=== PATIENT | female | born 1955 | race Two or more races ===

== ENCOUNTER 2021-01-27 09:01 | Outpatient (CLI) | payer OTHER | END 2021-01-27 09:07 | disposition home or self-care (01) | LOC: RX STUDY 09:01 | PROVIDERS: ATTEND Internal Medicine Gastroenterology | DX: K21.9 Gastro-esophageal reflux disease without esophagitis (principal); K44.9 Diaphragmatic hernia without obstruction or gangrene; R13.19 Other dysphagia ==

== ENCOUNTER 2022-08-12 07:30 | Inpatient (IN) | payer OTHER ==
[~2022-08-12] VITALS: Ht 147.3 cm; Wt 77.1 kg
[2022-08-12] MEDS ORDERED: SYNTHROID137 MCG PO (09:14)
[2022-08-12] MEDS ORDERED: PRAVASTATIN SOD10 MG PO (09:15)
[2022-08-18] MEDS ORDERED: CALCIUM 500-VI1 EAC4 (08:22)
[2022-08-18] MEDS ORDERED: GLUCOSAMINE-CH1 EA18 (08:23)
[2022-08-18] MEDS ORDERED: OMEGA 3-6-9 CO400 MG (08:23)
[2022-08-20] MEDS ORDERED: ELIQUIS2.5 MG PO (14:52)
[2022-08-20] MEDS ORDERED: PERCOCET 5-3251 EACH PO (14:52)
[2022-08-20] MEDS ORDERED: CIPRO500 MG PO (14:52)
== END 2022-08-20 22:46 | disposition home or self-care (01) | DRG 470 ==
LOC: O/R 08-18 05:30 → SURG 08-18 05:30 → SURH 08-18 07:30 → SURG 08-18 11:18 → SURH 08-18 17:45 → OB/GYN 08-20 16:15 → SURG 08-20 16:48
PROVIDERS: ADMIT Orthopaedic Surgery; ATTEND Orthopaedic Surgery
PROC: 0SRD0J9 Replacement of Left Knee Joint with Synthetic Substitute, Cemented, Open Approach (ICD-10-PCS; principal; 2022-08-18 17:45)
DX: M17.12 Unilateral primary osteoarthritis, left knee (principal); D62 Acute posthemorrhagic anemia; M22.12 Recurrent subluxation of patella, left knee; E03.9 Hypothyroidism, unspecified; K21.9 Gastro-esophageal reflux disease without esophagitis; Z96.652 Presence of left artificial knee joint; Z20.822 Contact with and (suspected) exposure to COVID-19

== ENCOUNTER 2022-08-25 14:20 | Inpatient (IN) | payer OTHER ==
[~2022-08-25] VITALS: Ht 147.3 cm; Wt 75.3 kg
[~2022-08-25 14:20] MED LIST: CALCIUM 500-VI1 EAC4; CIPRO500 MG PO; ELIQUIS2.5 MG PO; GLUCOSAMINE-CH1 EA18; OMEGA 3-6-9 CO400 MG; PERCOCET 5-3251 EACH PO; PRAVASTATIN SOD10 MG PO; SYNTHROID137 MCG PO
--- NOTE | 2022-08-25 14:39 | NUR ---
SE RECIBE PTE ALERTA Y ORIENTADO PTE REFIERE QUE TIENE LAB DE [facility] CON LA HEMOGLOBINA EN 7.4, PTE REFIERE DEBILIDAD EN GENERAL. SE KATELYN VITALES Y SE MONISHA EN OBSERVACION.
--- NOTE | 2022-08-25 17:12 | NUR ---
PTE FEMENINA ALERTA Y ORIENTADA EN LAS ANNETTE ESFERAS ES EVALUADA POR . SE ORIENTA SOBRE ORDENES DE [place] REFIERE COMPRENDER. SE COLECTAN MUESTRAS DE LABORATORIOS, BAJO MEDIDAS ASEPTICAS. SE ADMINISTRA MEDICMANETOS, BAJO MEDIDAS ASEPTICAS.
== END 2022-08-27 21:03 | disposition home or self-care (01) | DRG 812 ==
LOC: ER 14:20 → MEDI 19:56
PROVIDERS: ADMIT Internal Medicine; ATTEND Internal Medicine
PROC: 30233N1 Transfusion of Nonautologous Red Blood Cells into Peripheral Vein, Percutaneous Approach (ICD-10-PCS; principal; 2022-08-26)
DX: D62 Acute posthemorrhagic anemia (principal); E03.9 Hypothyroidism, unspecified; M17.12 Unilateral primary osteoarthritis, left knee; Z96.652 Presence of left artificial knee joint; Z98.890 Other specified postprocedural states